=== PATIENT | male | born 1990 | race African-American/Black ===

== ENCOUNTER 2016-07-05 21:11 | Emergency (ER) | payer MEDICAID ==
[~2016-07-05 21:11] MED LIST: /BACIOPOI TOP; KEFL500C OR; No Historical Meds; SENN8.6T5 OR; TRAM50TA2 OR
[2016-07-05] MEDS ORDERED: ONDANSETRON 4 MG ORAL DISINTEGRATING TAB (S0181) As Ordered ONE (23:22)
--- NOTE | 2016-07-06 00:09 | EDDOCDS ---
Physician Documentation [facility] Name: Fabiana Reddy Age: 26 yrs Sex: Male : 1990 Arrival Date: 07/05/2016 Time: 21:11 Bed PR Private MD: NO PRIMARY PHYSICIAN, . Disposition: 07/05/16 23:56 Discharged to Home/Self Care. Impression: Nausea and vomiting. - Condition is Stable. - Discharge Instructions: Nausea and Vomiting. - Prescriptions for Zofran 4 mg Oral Tablet - take 1 tablet by ORAL route 4 times per day As needed; 10 tablet. - Medication Reconciliation, Local Pharmacy Hours, Work Release Form - 2 day form. - [facility] up[facility]; When: Call to arrange an appointment; Reason: Further diagnostic work-up, Continuance of care, To establish care. - Problem is an ongoing problem. - Symptoms have improved. Historical: - Allergies: no known allergies; - Home Meds: 1. prazosin 1 mg Oral cap 1 cap nightly (Last dose: 07/04/2016) 2. trazodone 100 mg Oral tab 1 tab nightly (Last dose: 07/04/2016) - PMHx: Hypertension; - PSHx: ACL repair; fractured pelvis; - Social history: Smoking status: Patient states was never smoker of tobacco. No barriers to communication noted, The patient speaks fluent Armenian, Speaks appropriately for age. - Family history: Not pertinent. - : The pt / caregiver states he / she is not on anticoagulants. Home medication list is obtained from the patient. - Exposure Risk Screening:: None identified. Vital Signs: 07/05 21:12 BP 168 / 79; Pulse 81; Resp 16; Temp 98.3; Pulse Ox 100% ; Weight 81.65 kg / 180.01 elp lbs; Height 6 ft. 3 in. (190.50 cm); 23:10 BP 156 / 93; Pulse 50; Resp 18; Temp 99.1; Pulse Ox 99% on R/A; Pain 4/10; nn1 21:12 Body Mass Index 22.50 (81.65 kg, 190.50 cm) elp MDM: 23:18 Financial registration complete. [facility] 23:19 [facility] Payment Agreement was scanned into [employer] and attached to record. [email or web address] 23:20 Ondansetron 4 mg PO once ordered. ke 23:20 Fluid Challenge ordered. ke 23:24 Ondansetron ODT Oral Disintegrating Tablet 4 mg PO once ordered. dsf Administered Medications: 23:24 Not Given (Duplicate Order): Ondansetron 4 mg PO once dsf 23:24 Drug: Ondansetron ODT 4 mg [ondansetron 4 mg disintegrating tablet (1 tabs)] Route: PO; dsf Signatures: Frantz Martel FNP FNP ke Fuller, Desiree, RN RN dsf Mary Silvestre, Reg Reg [email or web address] The chart was reviewed and I authenticate all verbal orders and agree with the evaluation and treatment provided.Attachments: 23:19 [facility] Payment Agreement [email or web address] MTDD
--- NOTE | 2016-07-06 00:09 | EDDOCDS ---
Nurse's Notes [facility] Name: Fabiana Reddy Age: 26 yrs Sex: Male : 1990 Arrival Date: 07/05/2016 Time: 21:11 Bed PR Private MD: NO PRIMARY PHYSICIAN, . Diagnosis: Nausea and vomiting Presentation: 07/05 21:15 Presenting complaint: Patient states: nausea, vomiting and diarrhea all day. Adult dsf Sepsis Screening: The patient does not have new or worsening altered mentation. Patient's respiratory rate is less than 22. Systolic blood pressure is greater than 100. Patient has a qSOFA score of 0- Negative Sepsis Screen. Suicide/Homicide risk assessment- the patient denies having any suicidal and/or homicidal ideations and does not present with any other emotional, behavioral or mental health complaints. Status: Patient is not a customer service professional or dependent. Transition of care: patient was not received from another setting of care. 21:15 Acuity: KATHI Level 4 dsf 21:15 Method Of Arrival: Walkin/Carried/Asstd dsf Triage Assessment: 21:17 General: Appears in no apparent distress, Behavior is appropriate for age, cooperative. dsf Pain: Location: suprapubic area Pain currently is 4 out of 10 on a pain scale. Quality of pain is described as sharp, Pain began this morning. HIV screening NA for this visit Offered previously. GI: Reports diarrhea, nausea, vomiting, Pain is 4 out of 10 on a pain scale. Historical: - Allergies: no known allergies; - Home Meds: 1. prazosin 1 mg Oral cap 1 cap nightly (Last dose: 07/04/2016) 2. trazodone 100 mg Oral tab 1 tab nightly (Last dose: 07/04/2016) - PMHx: Hypertension; - PSHx: ACL repair; fractured pelvis; - Social history: Smoking status: Patient states was never smoker of tobacco. No barriers to communication noted, The patient speaks fluent Bulgarian, Speaks appropriately for age. - Family history: Not pertinent. - : The pt / caregiver states he / she is not on anticoagulants. Home medication list is obtained from the patient. - Exposure Risk Screening:: None identified. Screenin/08 00:05 Screening information is obtained from the patient. Fall risk: No risks identified. dsf Assistance ADL's: requires no assistance with activities of daily living. Abuse/DV Screen: The patient / caregiver reports he/she is: not in a situation that causes fear, pain or injury. Nutritional screening: No deficits noted. Advance Directives: Currently, there is no health care proxy. home support is adequate. Assessment: 07/05 23:08 General: Appears in no apparent distress, comfortable, Behavior is appropriate for age, nn1 cooperative, Patient on cell phone during assessment, patient in no distress at this time. No active vomiting. . Pain: Location: umbilical area and suprapubic area Pain currently is 4 out of 10 on a pain scale. Quality of pain is described as sharp, Pain began earlier today. Respiratory: Airway is patent Respiratory effort is even, unlabored, Respiratory pattern is regular, symmetrical. GI: Abdomen is flat, non- distended Bowel sounds present X 4 quads. Abd is tender to palpation in umbilical area, suprapubic area, left upper quadrant and left lower quadrant Reports diarrhea, nausea, vomiting. Derm: Skin is normal. 23:53 General: Patient given water for fluid challenge. No episodes of vomiting while in ED. nn1 07/06 00:05 General: Appears in no apparent distress, comfortable. Neurological: Level of dsf Consciousness is awake, alert. Cardiovascular: Capillary refill < 3 seconds. Respiratory: Airway is patent Respiratory effort is even, unlabored, Respiratory pattern is regular, symmetrical. Derm: Skin is dry, Skin is normal, Skin temperature is warm. Vital Signs: 07/05 21:12 BP 168 / 79; Pulse 81; Resp 16; Temp 98.3; Pulse Ox 100% ; Weight 81.65 kg; Height 6 elp ft. 3 in. (190.50 cm); 23:10 BP 156 / 93; Pulse 50; Resp 18; Temp 99.1; Pulse Ox 99% on R/A; Pain 4/10; nn1 21:12 Body Mass Index 22.50 (81.65 kg, 190.50 cm) [facility] Vitals: 21:12 Log In Time: July 05, 2016 at 21:10. [facility] ED Course: 21:12 Patient visited by Nkechi Yip PCA. elp 21:12 NO PRIMARY PHYSICIAN, . is Private Physician. elp 21:12 Patient moved to Waiting elp 21:13 Patient visited by Nkechi Yip PCA. elp 21:13 Patient moved to Pre RCE elp 21:15 Triage Initiated dsf 22:37 Patient moved to Triage 3 dsf 23:11 Patient visited by Dominguez Palma RN. nn1 23:16 [facility] ke 23:17 Patient visited by Frantz Martel FNP. ke 23:17 Patient visited by Frantz Martel FNP. ke 23:19 [facility] Payment Agreement was scanned into [employer] and attached to record. [email or web address] 23:34 Patient moved to PR1 / 25 dsf 23:56 Patient visited by Frantz Martel FNP. ke 23:56 [facility] is Referral Physician. ke 07/06 00:05 The patient / caregiver is instructed regarding the plan of care and ED course. dsf 00:05 No IV's were initiated during this patient's visit. No procedures done that require dsf assistance. Administered Medications: 07/05 23:24 Not Given (Duplicate Order): Ondansetron 4 mg PO once dsf 23:24 Drug: Ondansetron ODT 4 mg [ondansetron 4 mg disintegrating tablet (1 tabs)] Route: PO; dsf Order Results: There are currently no results for this order. Outcome: 23:56 Discharge ordered by Provider. 07/06 00:05 Discharge Assessment: Patient awake, alert and oriented x 3. No cognitive and/or dsf functional deficits noted. Patient verbalized understanding of disposition instructions. patient administered narcotics - no. The following High Risk Discharge criteria are identified: None. Discharged to home ambulatory. Condition: stable. Discharge instructions given to patient, Instructed on discharge instructions, follow up and referral plans. medication usage, Demonstrated understanding of instructions, medications, Pt was receptive of discharge instructions/ teaching. Prescriptions given X 1, Work note provided to patient. No special radiology studies were completed. Property sent home with patient. 00:08 Patient left the ED. dsf Signatures: Frantz Martel FNP FNP ke Fuller, DesireeRN RN dsf Nkechi Yip, SPA THERAPIST SPA THERAPIST elp Dominguez Palma,RN RN nn1 Mary Silvestre, Reg Reg [email or web address] Corrections: (The following items were deleted from the chart) 00:06 00:05 Derm: Skin is pink, warm & dry. dsf dsf MTDD
[2016-07-06] MEDS ORDERED: METAL LOCK LOOP XX ONE (01:51)
--- NOTE | 2016-07-08 01:09 | EDDOCDS ---
Nurse's Notes [facility] Name: Fabiana Reddy Age: 26 yrs Sex: Male : 1990 Arrival Date: 07/05/2016 Time: 21:11 Bed PR Private MD: NO PRIMARY PHYSICIAN, . Diagnosis: Nausea and vomiting Presentation: 07/05 21:15 Presenting complaint: Patient states: nausea, vomiting and diarrhea all day. Adult dsf Sepsis Screening: The patient does not have new or worsening altered mentation. Patient's respiratory rate is less than 22. Systolic blood pressure is greater than 100. Patient has a qSOFA score of 0- Negative Sepsis Screen. Suicide/Homicide risk assessment- the patient denies having any suicidal and/or homicidal ideations and does not present with any other emotional, behavioral or mental health complaints. Status: Patient is not a phlebotomy services representative or dependent. Transition of care: patient was not received from another setting of care. 21:15 Acuity: KATHI Level 4 dsf 21:15 Method Of Arrival: Walkin/Carried/Asstd dsf Triage Assessment: 21:17 General: Appears in no apparent distress, Behavior is appropriate for age, cooperative. dsf Pain: Location: suprapubic area Pain currently is 4 out of 10 on a pain scale. Quality of pain is described as sharp, Pain began this morning. HIV screening NA for this visit Offered previously. GI: Reports diarrhea, nausea, vomiting, Pain is 4 out of 10 on a pain scale. Historical: - Allergies: no known allergies; - Home Meds: 1. prazosin 1 mg Oral cap 1 cap nightly (Last dose: 07/04/2016) 2. trazodone 100 mg Oral tab 1 tab nightly (Last dose: 07/04/2016) - PMHx: Hypertension; - PSHx: ACL repair; fractured pelvis; - Social history: Smoking status: Patient states was never smoker of tobacco. No barriers to communication noted, The patient speaks fluent Tamazight, Speaks appropriately for age. - Family history: Not pertinent. - : The pt / caregiver states he / she is not on anticoagulants. Home medication list is obtained from the patient. - Exposure Risk Screening:: None identified. Screenin/08 00:05 Screening information is obtained from the patient. Fall risk: No risks identified. dsf Assistance ADL's: requires no assistance with activities of daily living. Abuse/DV Screen: The patient / caregiver reports he/she is: not in a situation that causes fear, pain or injury. Nutritional screening: No deficits noted. Advance Directives: Currently, there is no health care proxy. home support is adequate. Assessment: 07/05 23:08 General: Appears in no apparent distress, comfortable, Behavior is appropriate for age, nn1 cooperative, Patient on cell phone during assessment, patient in no distress at this time. No active vomiting. . Pain: Location: umbilical area and suprapubic area Pain currently is 4 out of 10 on a pain scale. Quality of pain is described as sharp, Pain began earlier today. Respiratory: Airway is patent Respiratory effort is even, unlabored, Respiratory pattern is regular, symmetrical. GI: Abdomen is flat, non- distended Bowel sounds present X 4 quads. Abd is tender to palpation in umbilical area, suprapubic area, left upper quadrant and left lower quadrant Reports diarrhea, nausea, vomiting. Derm: Skin is normal. 23:53 General: Patient given water for fluid challenge. No episodes of vomiting while in ED. nn1 07/06 00:05 General: Appears in no apparent distress, comfortable. Neurological: Level of dsf Consciousness is awake, alert. Cardiovascular: Capillary refill < 3 seconds. Respiratory: Airway is patent Respiratory effort is even, unlabored, Respiratory pattern is regular, symmetrical. Derm: Skin is dry, Skin is normal, Skin temperature is warm. Vital Signs: 07/05 21:12 BP 168 / 79; Pulse 81; Resp 16; Temp 98.3; Pulse Ox 100% ; Weight 81.65 kg; Height 6 elp ft. 3 in. (190.50 cm); 23:10 BP 156 / 93; Pulse 50; Resp 18; Temp 99.1; Pulse Ox 99% on R/A; Pain 4/10; nn1 21:12 Body Mass Index 22.50 (81.65 kg, 190.50 cm) [facility] Vitals: 21:12 Log In Time: July 05, 2016 at 21:10. [facility] ED Course: 21:12 Patient visited by Nkechi Yip PCA. elp 21:12 NO PRIMARY PHYSICIAN, . is Private Physician. elp 21:12 Patient moved to Waiting elp 21:13 Patient visited by Patchen, Nkechi, SHOP MECHANIC HELPER. elp 21:13 Patient moved to Pre RCE elp 21:15 Triage Initiated dsf 22:37 Patient moved to Triage 3 dsf 23:11 Patient visited by Dominguez Palma RN. nn1 23:16 Frantz Martel FNP is [facility]. ke 23:17 Patient visited by Frantz Martel FNP. ke 23:17 Patient visited by Frantz Martel FNP. ke 23:19 [facility] Payment Agreement was scanned into [email or web address] and attached to record. [email or web address] 23:34 Patient moved to PR1 / 25 dsf 23:56 Patient visited by Frantz Martel FNP. ke 23:56 [facility] is Referral Physician. ke 07/06 00:05 The patient / caregiver is instructed regarding the plan of care and ED course. dsf 00:05 No IV's were initiated during this patient's visit. No procedures done that require dsf assistance. 09:20 T-Sheet-- Draft Copy was scanned into [email or web address] and attached to record. gb Administered Medications: 02 23:24 Not Given (Duplicate Order): Ondansetron 4 mg PO once dsf 23:24 Drug: Ondansetron ODT 4 mg [ondansetron 4 mg disintegrating tablet (1 tabs)] Route: PO; dsf Order Results: There are currently no results for this order. Outcome: 23:56 Discharge ordered by Provider. 07/06 00:05 Discharge Assessment: Patient awake, alert and oriented x 3. No cognitive and/or dsf functional deficits noted. Patient verbalized understanding of disposition instructions. patient administered narcotics - no. The following High Risk Discharge criteria are identified: None. Discharged to home ambulatory. Condition: stable. Discharge instructions given to patient, Instructed on discharge instructions, follow up and referral plans. medication usage, Demonstrated understanding of instructions, medications, Pt was receptive of discharge instructions/ teaching. Prescriptions given X 1, Work note provided to patient. No special radiology studies were completed. Property sent home with patient. 00:08 Patient left the ED. dsf Signatures: Tavia Elaine, Reg Reg gb Frantz Martel FNP ASSOCIATE STORE MANAGERLea Story RN RN dsf Nkechi Ypi, SHOP MECHANIC HELPER SHOP MECHANIC HELPER Dominguez Jane,RN RN nn1 Mary Silvestre, Reg Reg [email or web address] Corrections: (The following items were deleted from the chart) 00:06 00:05 Derm: Skin is pink, warm & dry. dsf dsf Chart Complete MTDD
--- NOTE | 2016-07-08 01:09 | EDDOCDS ---
Physician Documentation [facility] Name: Fabiana Reddy Age: 26 yrs Sex: Male : 1990 Arrival Date: 07/05/2016 Time: 21:11 Bed PR Private MD: NO PRIMARY PHYSICIAN, . Disposition: 07/05/16 23:56 Discharged to Home/Self Care. Impression: Nausea and vomiting. - Condition is Stable. - Discharge Instructions: Nausea and Vomiting. - Prescriptions for Zofran 4 mg Oral Tablet - take 1 tablet by ORAL route 4 times per day As needed; 10 tablet. - Medication Reconciliation, Local Pharmacy Hours, Work Release Form - 2 day form. - Follow up: [facility]; When: Call to arrange an appointment; Reason: Further diagnostic work-up, Continuance of care, To establish care. - Problem is an ongoing problem. - Symptoms have improved. Historical: - Allergies: no known allergies; - Home Meds: 1. prazosin 1 mg Oral cap 1 cap nightly (Last dose: 07/04/2016) 2. trazodone 100 mg Oral tab 1 tab nightly (Last dose: 07/04/2016) - PMHx: Hypertension; - PSHx: ACL repair; fractured pelvis; - Social history: Smoking status: Patient states was never smoker of tobacco. No barriers to communication noted, The patient speaks fluent Omani, Speaks appropriately for age. - Family history: Not pertinent. - : The pt / caregiver states he / she is not on anticoagulants. Home medication list is obtained from the patient. - Exposure Risk Screening:: None identified. Vital Signs: 07/05 21:12 BP 168 / 79; Pulse 81; Resp 16; Temp 98.3; Pulse Ox 100% ; Weight 81.65 kg / 180.01 elp lbs; Height 6 ft. 3 in. (190.50 cm); 23:10 BP 156 / 93; Pulse 50; Resp 18; Temp 99.1; Pulse Ox 99% on R/A; Pain 4/10; nn1 21:12 Body Mass Index 22.50 (81.65 kg, 190.50 cm) elp MDM: 23:18 Financial registration complete. [facility] 23:19 [facility] Payment Agreement was scanned into [employer] and attached to record. [email or web address] 23:20 Ondansetron 4 mg PO once ordered. ke 23:20 Fluid Challenge ordered. ke 23:24 Ondansetron ODT Oral Disintegrating Tablet 4 mg PO once ordered. dsf 07/06 09:20 T-Sheet-- Draft Copy was scanned into [employer] and attached to record. gb Administered Medications: 07/05 23:24 Not Given (Duplicate Order): Ondansetron 4 mg PO once dsf 23:24 Drug: Ondansetron ODT 4 mg [ondansetron 4 mg disintegrating tablet (1 tabs)] Route: PO; dsf Signatures: Tavia Elaine, Reg Reg gb Frantz Martel, SALES ACCOUNT SPECIALIST SALES ACCOUNT SPECIALIST Lea Floyd RN RN dsf Mary Silvestre, Reg Reg ks16 The chart was reviewed and I authenticate all verbal orders and agree with the evaluation and treatment provided.Attachments: 23:19 [facility] Payment Agreement [email or web address] 07/06 09:20 T-Sheet-- Draft Copy gb Chart Complete MTDD
--- NOTE | 2016-07-08 01:09 | EDDOCDS ---
Physician Documentation [facility] Name: Fabiana Reddy Age: 26 yrs Sex: Male : 1990 Arrival Date: 07/05/2016 Time: 21:11 Bed PR Private MD: NO PRIMARY PHYSICIAN, . Disposition: 07/05/16 23:56 Discharged to Home/Self Care. Impression: Nausea and vomiting. - Condition is Stable. - Discharge Instructions: Nausea and Vomiting. - Prescriptions for Zofran 4 mg Oral Tablet - take 1 tablet by ORAL route 4 times per day As needed; 10 tablet. - Medication Reconciliation, Local Pharmacy Hours, Work Release Form - 2 day form. - Follow up: [facility]; When: Call to arrange an appointment; Reason: Further diagnostic work-up, Continuance of care, To establish care. - Problem is an ongoing problem. - Symptoms have improved. Historical: - Allergies: no known allergies; - Home Meds: 1. prazosin 1 mg Oral cap 1 cap nightly (Last dose: 07/04/2016) 2. trazodone 100 mg Oral tab 1 tab nightly (Last dose: 07/04/2016) - PMHx: Hypertension; - PSHx: ACL repair; fractured pelvis; - Social history: Smoking status: Patient states was never smoker of tobacco. No barriers to communication noted, The patient speaks fluent Kittitian, Speaks appropriately for age. - Family history: Not pertinent. - : The pt / caregiver states he / she is not on anticoagulants. Home medication list is obtained from the patient. - Exposure Risk Screening:: None identified. Vital Signs: 07/05 21:12 BP 168 / 79; Pulse 81; Resp 16; Temp 98.3; Pulse Ox 100% ; Weight 81.65 kg / 180.01 elp lbs; Height 6 ft. 3 in. (190.50 cm); 23:10 BP 156 / 93; Pulse 50; Resp 18; Temp 99.1; Pulse Ox 99% on R/A; Pain 4/10; nn1 21:12 Body Mass Index 22.50 (81.65 kg, 190.50 cm) elp MDM: 23:18 Financial registration complete. [id number] 23:19 [facility] Payment Agreement was scanned into [employer] and attached to record. [email or web address] 23:20 Ondansetron 4 mg PO once ordered. ke 23:20 Fluid Challenge ordered. ke 23:24 Ondansetron ODT Oral Disintegrating Tablet 4 mg PO once ordered. dsf 07/06 09:20 T-Sheet-- Draft Copy was scanned into [employer] and attached to record. gb Administered Medications: 07/05 23:24 Not Given (Duplicate Order): Ondansetron 4 mg PO once dsf 23:24 Drug: Ondansetron ODT 4 mg [ondansetron 4 mg disintegrating tablet (1 tabs)] Route: PO; dsf Signatures: Tavia Elaine, Reg Reg gb Frantz Martel, TRADE FACILITATOR TRADE FACILITATOR Lea Floyd RN RN dsf Mary Silvestre, Reg Reg ks16 The chart was reviewed and I authenticate all verbal orders and agree with the evaluation and treatment provided.Attachments: 23:19 [facility] Payment Agreement [email or web address] 07/06 09:20 T-Sheet-- Draft Copy gb Chart Complete MTDD
== END 2016-07-06 00:08 | disposition home or self-care (01) ==
LOC: M ED 21:11
DX: R11.2 Nausea with vomiting, unspecified (principal); I10 Essential (primary) hypertension; Z79.899 Other long term (current) drug therapy

== ENCOUNTER 2016-09-01 21:17 | Emergency (ER) | payer MEDICAID, OTHER ==
[~2016-09-01] VITALS: Ht 190.5 cm; Wt 81.6 kg
[2016-09-01] MEDS ORDERED: [UNRECOGNIZED DRUG - REMARK] (21:29)
[2016-09-01] MEDS ORDERED: predniSONE 20 MG TAB PO ONE (22:45)
[2016-09-01] MEDS ORDERED: NAPROXEN 250 MG TAB PO ONE (22:45)
[2016-09-01 22:47] VITALS: BP 152/98
== END 2016-09-01 22:48 | disposition home or self-care (01) ==
LOC: M ED 22:45
DX: G44.209 Tension-type headache, unspecified, not intractable (principal); J06.9 Acute upper respiratory infection, unspecified

== ENCOUNTER 2017-01-05 20:49 | Emergency (ER) | payer OTHER ==
[~2017-01-05] VITALS: Ht 190.5 cm; Wt 81.8 kg
[~2017-01-05 20:49] MED LIST changes: +[UNRECOGNIZED DRUG - REMARK]
[2017-01-05] MEDS ORDERED: MELA10TA PO (21:12)
[2017-01-05] MEDS ORDERED: MELA3TAB49 PO (21:12)
[2017-01-05] MEDS ORDERED: MIRT1TAB3 PO (21:13)
[2017-01-05] MEDS ORDERED: D200CAP3 PO (21:14)
[2017-01-05] MEDS ORDERED: ZOLO50TA PO (21:15)
[2017-01-05] MEDS ORDERED: ONDANSETRON 4MG/2ML VIAL (J2405) IV ONE (21:15)
[2017-01-05] MEDS ORDERED: ZOLO100T PO (21:15)
[2017-01-05 22:01] VITALS: BP 129/64
[2017-01-05 22:07] LABS: BASO % 0.3 % (0.0-1.0); EOS # 0.1 K/mm3 (0.0-0.50); EOS % 1.4 % (0.0-3.0); LARGE UNSTAINED CELL # 0.1 K/mm3 (0.0-0.4); LYMPH # 0.3 K/mm3 (1.5-6.5); LYMPH % 4.2 % (24.0-44.0); MEAN CORPUSCULAR HEMOGLOBIN 31.2 pg (27.0-33.0); MEAN CORPUSCULAR HGB CONC 34.9 g/dl (32.0-36.5); MEAN CORPUSCULAR VOLUME 89.4 fl (80.0-96.0); MONO # 0.3 K/mm3 (0.0-0.8); MONO % 3.9 % (0.0-5.0); NEUTROPHILS # 6.7 K/mm3 (1.8-7.7); NEUTROPHILS % 89.2 % (36.0-66.0); PLATELET COUNT, AUTOMATED 196 k/mm3 (150-450); RED CELL DISTRIBUTION WIDTH 12.4 % (11.5-14.5); WHITE BLOOD COUNT 7.6 K/mm3 (4.0-10.0)
[2017-01-05 22:23] LABS: ALBUMIN 4.3 GM/DL (3.2-5.2); ALBUMIN/GLOBULIN RATIO 1.39 (1.00-1.93); ALKALINE PHOSPHATASE 55 U/L (45-117); ALT/SGPT 35 U/L (12-78); ANION GAP 8 MEQ/L (8-16); AST/SGOT 34 U/L (15-37); BILIRUBIN,DIRECT 0.2 MG/DL (0.0-0.2); BLOOD UREA NITROGEN 12 MG/DL (7-18); CALCIUM LEVEL 9.1 MG/DL (8.5-10.1); CARBON DIOXIDE LEVEL 27 MEQ/L (21-32); CHLORIDE LEVEL 105 MEQ/L (98-107); CREATININE FOR GFR 1.23 MG/DL (0.70-1.30); GLOMERULAR FILTRATION RATE > 60.0 (>60); GLUCOSE, FASTING 96 MG/DL (70-105); POTASSIUM SERUM 4.1 MEQ/L (3.5-5.1); SODIUM LEVEL 140 MEQ/L (136-145); TOTAL PROTEIN 7.4 GM/DL (6.4-8.2)
[2017-01-05] MEDS ORDERED: NORCO, ANEXSIA 5/325MG TABLET (HYDROcodone/ACETAMINOPHEN) PO ONE (23:00)
[2017-01-05] MEDS ORDERED: ZOFR4TAB3 PO (23:34)
[2017-01-05] MEDS ORDERED: ONDANSETRON 4 MG ORAL DISINTEGRATING TAB (S0181) PO ONE (23:45)
--- NOTE | 2017-01-06 08:07 | REP ---
Acute abdominal series three views including PA chest and supine upright abdomen: There are no comparisons. PA chest: Lung alba are clear. Cardiac size is normal. The moe, mediastinum, and bony thorax are unremarkable. There is no free subdiaphragmatic air. Impression: Negative PA chest. Abdomen, supine and upright views: The bowel gas pattern is normal. No calcifications. Skeletal structures and soft tissues are otherwise unremarkable. Impression: Normal bowel gas pattern. No Signed by Curtis Perez MD 01/06/2017 07:59 A
== END 2017-01-06 00:46 | disposition home or self-care (01) ==
LOC: M ED 20:49
DX: K52.9 Noninfective gastroenteritis and colitis, unspecified (principal); F32.9 Major depressive disorder, single episode, unspecified; E55.9 Vitamin D deficiency, unspecified
CPT/HCPCS: 74022; 80048; 80076; 83690; 85025; 96374; 99283; J2405

== ENCOUNTER → 2017-06-30 | Outpatient (REF) | payer OTHER ==
[2017-06-30 20:30] LABS: CHLAMYDIA DNA AMPLIFICATION POSITIVE (NEGATIVE); GC DNA AMPLIFICATION NEGATIVE (NEGATIVE)
== END ==
LOC: M LAB REF 17:39
DX: Z11.3 Encounter for screening for infections with a predominantly sexual mode of transmission (principal)
CPT/HCPCS: 87591

== ENCOUNTER 2017-11-11 04:54 | Emergency (ER) | payer OTHER ==
[2017-11-11] MEDS: CETACAINE SPRAY 5GM TOP (05:52)
== END 2017-11-11 06:10 | disposition home or self-care (01) ==
LOC: M ED 04:54
DX: K02.9 Dental caries, unspecified (principal); K08.89 Other specified disorders of teeth and supporting structures; Z79.899 Other long term (current) drug therapy
CPT/HCPCS: 64400

== ENCOUNTER 2017-12-13 09:29 | Emergency (ER) | payer OTHER | END 2017-12-13 10:45 | disposition home or self-care (01) | LOC: M ED 09:29 | DX: Z48.02 Encounter for removal of sutures (principal) | CPT/HCPCS: 99282 ==

== ENCOUNTER → 2018-01-05 | Outpatient (CLI) | payer OTHER | LOC: M RAD 09:14 | DX: M50.322 Other cervical disc degeneration at C5-C6 level (principal) | CPT/HCPCS: 72050 ==

== ENCOUNTER → 2018-10-19 | Outpatient (REF) | payer OTHER ==
[~2018-10-19] MED LIST changes: +CEFUROXIME; +CLEO300C2 PO; +D200CAP3 PO; +MELA10TA PO; +MELA3TAB49 PO; +MIRT-15 PO; +PRED20TA; +ZOFR4TAB14 PO; +ZOLO100T PO; +ZOLO50TA PO
[2018-10-19 23:03] LABS: CHLAMYDIA DNA AMPLIFICATION NEGATIVE (NEGATIVE); GC DNA AMPLIFICATION NEGATIVE (NEGATIVE)
== END ==
LOC: M LAB REF 13:52
PROVIDERS: ATTEND Physician Assistant
DX: Z11.3 Encounter for screening for infections with a predominantly sexual mode of transmission (principal)

== ENCOUNTER → 2018-12-08 | Outpatient (CLI) | payer OTHER ==
--- NOTE | 2018-12-08 11:14 | REP ---
Left thumb series: Four views. History: Injury. Findings: Four views of the left thumb demonstrate a comminuted interarticular fracture of the proximal phalanx of the thumb at the MCP joint with impaction and slight apex palmar angulation. There is associated soft-tissue swelling. There is also soft tissue swelling over the extensor surface of the IP joint of the thumb. There is incomplete extension of this articulation. Question extensor tendon injury. Electronically Signed by Saud Carrera MD 12/08/2018 01:34 P
== END ==
LOC: M RAD 10:27
PROVIDERS: ATTEND Physician Assistant
DX: S62.515A Nondisplaced fracture of proximal phalanx of left thumb, initial encounter for closed fracture (principal); X58.XXXA Exposure to other specified factors, initial encounter; Y92.89 Other specified places as the place of occurrence of the external cause

== ENCOUNTER 2018-12-10 00:51 | Emergency (ER) | payer OTHER ==
[~2018-12-10] VITALS: Ht 190.5 cm; Wt 81.8 kg
[2018-12-10 00:53] VITALS: BP 131/93
--- NOTE | 2018-12-10 08:36 | REP ---
Left four views: There is a comminuted intra-articular compression fracture at the base of the thumb proximal phalange. There is no dislocation. Electronically Signed by Curtis Perez MD 12/10/2018 08:27 A
== END 2018-12-10 02:36 | disposition home or self-care (01) ==
LOC: M ED 00:51
DX: S62.512A Displaced fracture of proximal phalanx of left thumb, initial encounter for closed fracture (principal); X58.XXXA Exposure to other specified factors, initial encounter; Y92.89 Other specified places as the place of occurrence of the external cause

== ENCOUNTER → 2019-07-11 | Outpatient (REF) | payer OTHER ==
[2019-07-12 00:04] LABS: CHLAMYDIA DNA AMPLIFICATION NEGATIVE (NEGATIVE); GC DNA AMPLIFICATION NEGATIVE (NEGATIVE)
== END ==
LOC: M LAB REF 08:30
PROVIDERS: ATTEND Physician Assistant
DX: Z11.3 Encounter for screening for infections with a predominantly sexual mode of transmission (principal)

== ENCOUNTER 2020-01-16 19:45 | Emergency (ER) | payer OTHER ==
[~2020-01-16] VITALS: Ht 190.5 cm; Wt 94.6 kg
[2020-01-16] MEDS ORDERED: DERMABOND TOPICAL SKIN ADHESIVE TOP ONE (23:00)
[2020-01-16 23:21] VITALS: BP 150/90
== END 2020-01-17 00:35 | disposition home or self-care (01) ==
LOC: M ED 19:45
DX: S01.112A Laceration without foreign body of left eyelid and periocular area, initial encounter (principal); W51.XXXA Accidental striking against or bumped into by another person, initial encounter; Y92.830 Public park as the place of occurrence of the external cause; Y93.67 Activity, basketball; Y99.8 Other external cause status; Z87.820 Personal history of traumatic brain injury; Z87.81 Personal history of (healed) traumatic fracture